=== PATIENT | female | born 1945 | race African-American/Black ===

== ENCOUNTER 2017-05-19 20:54 | Emergency (ER) | payer OTHER ==
[~2017-05-19 20:54] MED LIST: BLOO1KIT65; BRIM0.2S4 EACH EYE; CARV25TA PO; CEPH-460 PO; GLIP5TAB8 PO; ONDA4TAB7 SL; PRAD150C PO; SACU1TAB4 PO; SPIR25TA PO; TORS10TA2 PO; TRAM50TA PO; ZOCO40TA PO
[2017-05-19 20:57] VITALS: BP 126/78; PULSE 78; RESP 16; TEMP 97.5; O2SAT 100
--- NOTE | 2017-05-19 23:44 | PD ---
HPI Chief Complaint: Injury Time Seen by Provider: 23:31 Travel History International Travel<30 days: No Contact w/Intl Traveler<30days: No Traveled to known affect area: No History of Present Illness HPI 71-year-old female with history of diabetes here for evaluation of left thumb pain. Patient reports that she was cleaning fish out of the ocean at around 1 - 2 PM today to prepare to eat when she believes that one of the scales her spines got stuck in her left/medial thumb. She tried to remove whatever she thought was sticking into her thumb, and believes she may remove everything, however she complains of persistent pain to this area which is worse with palpation. Pain is mild to moderate and feels as though there is a foreign body in her thumb. PFSH Past Medical History Hx Anticoagulant Therapy: Yes Arthritis: Yes Asthma: No Atrial Fibrillation: Yes (HX) Blood Disorders: No Anxiety: No Depression: No Heart Rhythm Problems: No Cancer: No Cardiovascular Problems: Yes High Cholesterol: Yes Chest Pain: No Congestive Heart Failure: Yes COPD: No Diabetes: Yes Endocrine: Yes Gastrointestinal Disorders: No Genitourinary: No Hypertension: Yes Immune Disorder: No Implanted Vascular Access Dvce: Yes Musculoskeletal: Yes (CHRONIC BACK PAIN, ARTHRITIS) Neurologic: Yes (VERTIGO) Psychiatric: No Reproductive: No Respiratory: Yes Myocardial Infarction: Yes Sleep Apnea: Yes Thyroid Disease: Yes Menopausal: Yes Past Surgical History Abdominal Surgery: No Body Medical Devices: AICD Cardiac Surgery: Yes (pacemaker 2012, CARDIAC CATH, ABLASION ) Ear Surgery: No Endocrine Surgery: No Eye Surgery: No Genitourinary Surgery: No Gynecologic Surgery: Yes (S & O,WILLIAM) Hysterectomy: Yes Neurologic Surgery: No Oral Surgery: No Pacemaker: Yes ([id number]/ [id number]) Thoracic Surgery: No Other Surgery: Yes (HYSTERECTOMY) Social History Alcohol Use: No Tobacco Use: No Substance Use: No Allergies-Medications (Allergen,Severity, Reaction): Coded Allergies: Celebrex (Verified Allergy, Severe, 05/19/17) Codeine (Verified Allergy, Severe, 05/19/17) Vioxx (Verified Allergy, Severe, 05/19/17) MRI PRECAUTION (Verified Adverse Reaction, Severe, NON REVO PACEMAKER 01/14 LRS, 05/19/17) Reported Meds & Prescriptions Reported Meds & Active Scripts Active Accu-Chek Noelle Connect W/Device (Blood Glucose Monitoring Suppl) 1 Kit Kit 1 Kit .ROUTE DIRECTED Reported Tramadol (Tramadol HCl) 50 Mg Tab 50 Mg PO Q6HR PRN Pradaxa (Dabigatran) 150 Mg Cap 150 Mg PO BID Entresto (Sacubitril-Valsartan) 97-103 Mg Tab 1 Tab PO BID Spironolactone 25 Mg Tab 25 Mg PO DAILY Carvedilol 25 Mg Tab 25 Mg PO BID Zocor (Simvastatin) 40 Mg Tab 40 Mg PO DAILY Glipizide 5 Mg Tab 5 Mg PO BID Take 30 minutes before a meal Brimonidine Opth Drops (Brimonidine Tartrate) 0.2% Soln 1 Drop EACH EYE BID Review of Systems Except as stated in HPI: all other systems reviewed are Neg Physical Exam Narrative GENERAL: Well-developed, well-nourished, comfortable, no apparent distress. SKIN: Left mid/medial thumb with a small puncture site that is mildly tender. The thumb itself is supple without fluctuance or induration. No evidence for felon or paronychia. No warmth, erythema, or signs of cellulitis. MUSCULOSKELETAL: Left thumb with skin exam as above without obvious deformity, with normal range of motion. NEUROLOGICAL: Awake and alert. No obvious cranial nerve deficits. Motor grossly within normal limits. Normal speech. PSYCHIATRIC: Appropriate mood and affect; insight and judgment normal. Data Data Last Documented VS Vital Signs Date Time Temp Pulse Resp B/P Pulse Ox O2 Delivery O2 Flow Rate FiO2 05/19/17 23:35 78 16 100 Room Air 05/19/17 20:57 97.5 126/78 Orders Finger ([id number]) (05/19/17 ) Tetanus/Diphtheria Tox Adult (Tetanus/Di (05/19/17 23:45) Levofloxacin (Levaquin) (05/20/17 00:15) Doxycycline (Vibratab) (05/20/17 00:15) MDM Medical Decision Making Medical Screen Exam Complete: Yes Emergency Medical Condition: Yes Differential Diagnosis Left thumb foreign body, left thumb puncture wound, felon/paronychia unlikely Narrative Course Left thumb x-ray shows no acute abnormality, no radiopaque foreign body. On physical exam the patient does have a small very superficial appearing puncture to the left medial/mid thumb. There are no signs of cellulitis, felon , or paronychia. Patient reports that the fish was a saltwater fish. Patient also reports that she is diabetic. She will be started on Levaquin and doxycycline for vibrio prophylaxis. Tetanus was also updated. She will follow- up with her primary care physician this week. She was informed on when to return to the emergency department. She verbalizes understanding and agreement with plan. Diagnosis Primary Impression: Puncture wound of left thumb Qualified Code: S61.032A - Puncture wound of left thumb, initial encounter Referrals: Primary Care Physician 3 days Additional Instructions: Follow-up with your primary care physician this week. Return to the emergency department for worsening symptoms or any other concerns. Scripts Doxycycline (Monohydrate) (Doxycycline)100 Mg Cap1 Cap PO BID 7 Days Prov:Richard Thomas MD 05/20/17 Levofloxacin (Levaquin)750 Mg Tablet1 Tab PO DAILY 7 Days Prov:Richard Thomas MD 05/20/17 Disposition: 01 DISCHARGE HOME Condition: Stable Richard Thomas MD May 19, 2017 23:44
[2017-05-19] MEDS ORDERED: TETANUS/DIPHTHERIA TOXOID ADULT 0.5 ML VIAL IM ONE (23:45)
--- NOTE | 2017-05-19 23:59 | RADRPT ---
EXAM DATE/TIME: 05/19/2017 23:49 [facility] COMPARISON: No previous studies available for comparison. INDICATIONS : Hurt left thumb catching fish, states fish scales cut her finger. MEDICAL HISTORY : None. SURGICAL HISTORY : None. ENCOUNTER: Initial ACUITY: 1 day PAIN SCORE: 0/10 LOCATION: Left thumb FINDINGS: Three views of the left hand first digit demonstrate no fracture or dislocation. Mineralization is wi thin normal limits and there is no significant arthropathy. No soft tissue abnormality or radiopaque foreign body is identified. CONCLUSION: No acute abnormality is identified. Sb Orellana MD on May 19, 2017 at 23:57 Board Certified Radiologist. This report was verified electronically.
[2017-05-20] MEDS ORDERED: LEVA750T9 PO (00:12)
[2017-05-20] MEDS ORDERED: DOXY1CAP91 PO (00:12)
[2017-05-20] MEDS ORDERED: LEVOFLOXACIN 750 MG TAB PO ONE (00:15)
[2017-05-20] MEDS ORDERED: DOXYCYCLINE HYCLATE 100 MG TAB PO ONE (00:15)
== END 2017-05-20 00:34 | disposition home or self-care (01) ==
LOC: NEPD 23:49
DX: S61.032A Puncture wound without foreign body of left thumb without damage to nail, initial encounter (principal); E11.9 Type 2 diabetes mellitus without complications; I48.91 Unspecified atrial fibrillation; I50.9 Heart failure, unspecified; I10 Essential (primary) hypertension; E78.00 Pure hypercholesterolemia, unspecified; W45.8XXA Other foreign body or object entering through skin, initial encounter; Y92.832 Beach as the place of occurrence of the external cause; Z23 Encounter for immunization
CPT/HCPCS: 73140; 90471; 90714